=== PATIENT | female | born 1975 | race Caucasian/White ===

== ENCOUNTER 2023-10-09 15:02 | Emergency (ER) | payer OTHER, SELFPAY ==
[2023-10-09] MEDS ORDERED: Ondansetron ODT 4 MG TAB ONE (16:44)
[2023-10-09 17:01] LABS: #Basophils 0.03 10x3/uL (0.0-0.2); %Basophils 0.5 % (0.0-1.0); %Eosinophils 1.8 % (0.0-10.0); %Lymphocytes 21.3 % (21.0-51.0); %Neutrophils 69.1 % (42.0-75.0); Hematocrit 37.7 % (36.0-47.0); Hemoglobin 12.5 g/dL (12.0-16.0); Mean Corpuscular HGB CONC 33.2 g/dL (32.0-36.0); Mean Corpuscular Hemoglobin 29.5 pg (27.0-31.0); Mean Corpuscular Volume 88.9 fL (78.0-98.0); Mean Platelet Volume 9.2 fL (7.4-10.4); Platelet Count 427 10x3/uL (130-400); RBC Distribution Width 14.3 % (11.5-14.5); Red Blood Cell (RBC) Count 4.24 mill/uL (4.20-5.40)
[2023-10-09 17:02] LABS: BHCG - Serum Negative (NEGATIVE); Pregs Control Background? CLEAR/WHITE (CLR/WHITE); Pregs Control Bar Appear? YES (CONTROL BAR)
[2023-10-09 17:06] LABS: ALT (SGPT) 34 U/L (8-55); AST (SGOT) 30 U/L (5-34); Albumin 3.5 g/dL (3.5-5.0); Alkaline Phosphatase 117 U/L (40-110); Anion Gap 14 mmol/L (10-20); BUN (Urea Nitrogen) 13 mg/dL (7.0-18.7); Bilirubin, Total 0.3 mg/dL (0.2-1.2); Calc. Creatinine Clearance 0 mL/min (70-130); Calcium 9.4 mg/dL (7.8-10.44); Carbon Dioxide 26 mmol/L (22-29); Chloride 103 mmol/L (98-107); Estimated GFR 88; Globulin 4.3 g/dL (2.4-3.5); Glucose 114 mg/dL (70-105); Lipase 19 U/L (8-78); Potassium 3.7 mmol/L (3.5-5.1); Protein, Total 7.8 g/dL (6.0-8.3); Sodium 139 mmol/L (136-145)
[2023-10-09 17:11] LABS: Troponin I Less than 0.010 ng/mL (< 0.028)
[2023-10-09 17:30] LABS: Bacteria/HPF 2+ HPF (None Seen); Bilirubin Negative (Negative); Blood, Urine 3+ (Negative); CAUTI Indications for Culture Dysuria,urgency,freq; Glucose, Urine (Dipstick) Normal (Negative); Ketone, Urine Trace mg/dL (Negative); Leukocyte 500 Leu/uL (Negative); Nitrite 2+ (Negative); Protein, Urine (Dipstick) 50 mg/dL (Neg-Trace); Specific Gravity, Urine 1.028 (1.002-1.036); WBC/HPF Greater than 50 HPF (0-3)
[2023-10-09 17:48] LABS: Clarity Cloudy (Clear)
[2023-10-09 17:49] LABS: Urine Culture Reflex Yes Yes
== END 2023-10-09 17:30 | disposition home or self-care (01) ==
LOC: ERS 15:02
DX: K21.9 Gastro-esophageal reflux disease without esophagitis (principal); F17.210 Nicotine dependence, cigarettes, uncomplicated
CPT/HCPCS: 80053; 81001; 83690; 84484; 84703; 85025; 87077; 87086; 93005; Q0162

== ENCOUNTER 2023-11-12 23:25 | Inpatient (IN) | payer SELFPAY ==
[2023-11-13] MEDS ORDERED: Dicyclomine 20 MG/2 ML VIAL ONE (00:29)
[2023-11-13] MEDS ORDERED: Ondansetron PF 4 MG/2 ML Vial ONE ×2 (00:29→13:04)
[2023-11-13 00:52] LABS: #Basophils 0.03 10x3/uL (0.0-0.2); %Basophils 0.4 % (0.0-1.0); %Eosinophils 0.8 % (0.0-10.0); %Lymphocytes 18.9 % (21.0-51.0); %Monocytes 6.7 % (0.0-10.0); %Neutrophils 72.9 % (42.0-75.0); Hematocrit 30.2 % (36.0-47.0); Hemoglobin 9.6 g/dL (12.0-16.0); Mean Corpuscular HGB CONC 31.8 g/dL (32.0-36.0); Mean Platelet Volume 8.8 fL (7.4-10.4); Platelet Count 404 10x3/uL (130-400); RBC Distribution Width 15.2 % (11.5-14.5); Red Blood Cell (RBC) Count 3.43 mill/uL (4.20-5.40)
[2023-11-13 01:08] LABS: ALT (SGPT) 28 U/L (8-55); AST (SGOT) 20 U/L (5-34); Albumin 2.8 g/dL (3.5-5.0); Alkaline Phosphatase 94 U/L (40-110); Anion Gap 11 mmol/L (10-20); BUN (Urea Nitrogen) 16 mg/dL (7.0-18.7); Bilirubin, Total 0.3 mg/dL (0.2-1.2); Calc. Creatinine Clearance 0 mL/min (70-130); Calcium 8.8 mg/dL (7.8-10.44); Carbon Dioxide 23 mmol/L (22-29); Chloride 106 mmol/L (98-107); Estimated GFR 86; Globulin 3.5 g/dL (2.4-3.5); Glucose 100 mg/dL (70-105); Lipase 18 U/L (8-78); Potassium 3.3 mmol/L (3.5-5.1); Protein, Total 6.3 g/dL (6.0-8.3); Sodium 137 mmol/L (136-145)
[2023-11-13] MEDS ORDERED: Piperacillin/Tazobactam 3.375 GM VIAL ONE (03:48)
[2023-11-13] MEDS ORDERED: Morphine 4 MG/ML VIAL ONE (04:06)
[2023-11-13] MEDS ORDERED: Morphine 4 MG/ML VIAL SLOW IVP PRN (04:24)
[2023-11-13] MEDS ORDERED: Ondansetron PF 4 MG/2 ML Vial IVP PRN (04:24)
[2023-11-13] MEDS ORDERED: Promethazine HCl 25 MG/ML VIAL IM PRN ×2 (04:24→12:25)
[2023-11-13] MEDS ORDERED: Acetaminophen 325 MG TAB PO PRN (04:24)
[2023-11-13 04:51] VITALS: BMI 21.9
[2023-11-13] MEDS: Sodium Chloride 0.9% 1,000 ML IV SCH (05:47)
[2023-11-13] MEDS: TETANUS, DIPHTHERIA TOX,ADULT (TDVAX) 0.5 ML VIAL IM ONE (06:39)
[2023-11-13] MEDS: diphenhydrAMINE 50 MG/ML VIAL ONE (07:25)
[2023-11-13] MEDS: Famotidine/PF 20 mg/2ml Vial SLOW IVP SCH (08:21)
[2023-11-13] MEDS ORDERED: Dicyclomine 20 MG TAB PO PRN (08:48)
[2023-11-13] MEDS ORDERED: EPINEPHrine 1 MG/ML VIAL ONE ×2 (09:21→12:51)
[2023-11-13] MEDS ORDERED: Bupivacaine 0.25% HCL 30 ML VIAL ONE ×2 (09:21→12:52)
[2023-11-13] MEDS: Rosuvastatin 10 MG TAB PO SCH (12:23)
[2023-11-13] MEDS: Pantoprazole DR 40 MG TAB PO SCH (12:23)
[2023-11-13] MEDS: Losartan 25 MG TAB PO SCH (12:23)
[2023-11-13] MEDS ORDERED: Ondansetron HCl/PF 4 MG/2 ML Vial IVP PRN (12:25)
[2023-11-13] MEDS ORDERED: HYDROmorphone 2 MG/ML VIAL SLOW IVP PRN (12:25)
[2023-11-13] MEDS ORDERED: Midazolam HCl 2 mg/2 ml Vial ONE (13:03)
[2023-11-13] MEDS ORDERED: fentaNYL PF 100 MCG/2 ML SYRINGE ONE ×2 (13:03→14:38)
[2023-11-13] MEDS ORDERED: PROPOFOL 20 ML ONE (13:03)
[2023-11-13] MEDS ORDERED: Lidocaine 1% PF 5 ML VIAL ONE (13:04)
[2023-11-13] MEDS ORDERED: Dexamethasone 20 MG/5 ML VIAL ONE (13:04)
[2023-11-13] MEDS ORDERED: Rocuronium Bromide 10 MG/ML (10ML VIAL) ONE (13:04)
[2023-11-13] MEDS ORDERED: LevoFLOXacin D5W 500 mg (100 mL) BAG ONE (13:25)
[2023-11-13] MEDS ORDERED: diphenhydrAMINE 50 MG/ML VIAL ONE (13:36)
[2023-11-13] MEDS ORDERED: SUGAMMADEX SODIUM 200 MG/2 ML VIAL ONE (13:57)
[2023-11-13] MEDS ORDERED: Promethazine HCl 25 MG/ML VIAL ONE (14:39)
[2023-11-13] MEDS: hydrALAZINE 20 MG/ML VIAL SLOW IVP PRN (20:53)
[2023-11-14 06:54] LABS: #Basophils Less than 0.03 10x3/uL (0.0-0.2); #Eosinphils Less than 0.03 10x3/uL (0.0-0.7); %Basophils 0.1 % (0.0-1.0); %Lymphocytes 15.8 % (21.0-51.0); %Monocytes 5.2 % (0.0-10.0); %Neutrophils 78.5 % (42.0-75.0); Hemoglobin 10.8 g/dL (12.0-16.0); Mean Corpuscular HGB CONC 31.8 g/dL (32.0-36.0); Mean Corpuscular Hemoglobin 27.3 pg (27.0-31.0); Mean Corpuscular Volume 85.9 fL (78.0-98.0); Mean Platelet Volume 8.9 fL (7.4-10.4); Platelet Count 451 10x3/uL (130-400); RBC Distribution Width 15.3 % (11.5-14.5); Red Blood Cell (RBC) Count 3.96 mill/uL (4.20-5.40)
[2023-11-14 07:27] LABS: ALT (SGPT) 54 U/L (8-55); AST (SGOT) 45 U/L (5-34); Albumin 2.7 g/dL (3.5-5.0); Alkaline Phosphatase 100 U/L (40-110); Anion Gap 11 mmol/L (10-20); BUN (Urea Nitrogen) 8 mg/dL (7.0-18.7); Bilirubin, Total 0.3 mg/dL (0.2-1.2); Calc. Creatinine Clearance 83 mL/min (70-130); Calcium 8.8 mg/dL (7.8-10.44); Carbon Dioxide 23 mmol/L (22-29); Chloride 108 mmol/L (98-107); Estimated GFR 96; Globulin 3.9 g/dL (2.4-3.5); Glucose 140 mg/dL (70-105); Protein, Total 6.6 g/dL (6.0-8.3); Sodium 138 mmol/L (136-145)
[2023-11-14] MEDS: traMADol HCl 50 MG TAB PO PRN (10:41)
[2023-11-14 11:50] VITALS: BP 161/84; TEMP 97.8
== END 2023-11-14 13:07 | disposition home or self-care (01) | DRG 419 ==
LOC: ERS 23:25 → T4-B 11-13 04:37 → OBSVTOIN 11-13 04:37
PROVIDERS: ADMIT Surgery; ATTEND Surgery
PROC: 0FT44ZZ Resection of Gallbladder, Percutaneous Endoscopic Approach (ICD-10-PCS; principal; 2023-11-13)
DX: K80.00 Calculus of gallbladder with acute cholecystitis without obstruction (principal); Z98.890 Other specified postprocedural states; Z79.899 Other long term (current) drug therapy
CPT/HCPCS: 36415; 76705; 80053; 83690; 85025; 88304; 90714; 96372; 96374; 96375; C1713; G0378; J0171; J0360; J0665; J1100; J1200; J1956; J2250; J2270; J2405; J2543; J2550; J2704; J7050; S0028

== ENCOUNTER 2023-11-21 10:37 | Emergency (ER) | payer OTHER, SELFPAY ==
[2023-11-21] MEDS ORDERED: Iopamidol 370 76% 100 ML VIAL ONE (10:44)
[2023-11-21 11:12] LABS: #Basophils 0.03 10x3/uL (0.0-0.2); %Basophils 0.4 % (0.0-1.0); %Eosinophils 3.7 % (0.0-10.0); %Neutrophils 67.7 % (42.0-75.0); Hematocrit 33.7 % (36.0-47.0); Hemoglobin 10.7 g/dL (12.0-16.0); Mean Corpuscular HGB CONC 31.8 g/dL (32.0-36.0); Mean Corpuscular Hemoglobin 27.2 pg (27.0-31.0); Mean Corpuscular Volume 85.5 fL (78.0-98.0); Mean Platelet Volume 9.1 fL (7.4-10.4); Platelet Count 503 10x3/uL (130-400); RBC Distribution Width 14.8 % (11.5-14.5); Red Blood Cell (RBC) Count 3.94 mill/uL (4.20-5.40)
[2023-11-21 11:39] LABS: Pregnancy Test - Urine (BHCG) Negative (Negative); Pregu Control Background? CLEAR/WHITE (CLR/WHITE); Pregu Control Bar Appear? YES (CONTROL BAR)
[2023-11-21 11:41] LABS: Bilirubin Negative (Negative); Blood, Urine Negative (Negative); CAUTI Indications for Culture Dysuria,urgency,freq; Clarity Clear (Clear); Glucose, Urine (Dipstick) Normal (Negative); Ketone, Urine Negative (Negative); Leukocyte Negative Leu/uL (Negative); Nitrite Negative (Negative); Protein, Urine (Dipstick) Negative (Neg-Trace); RBC/HPF 0-3 HPF (0-3); Squamous Epithelial 0-3 HPF (0-3); Urobilinogen Normal mg/dL (Less than 2)
[2023-11-21 11:46] LABS: ALT (SGPT) 17 U/L (8-55); AST (SGOT) 16 U/L (5-34); Albumin 2.9 g/dL (3.5-5.0); Alkaline Phosphatase 76 U/L (40-110); Anion Gap 11 mmol/L (10-20); BUN (Urea Nitrogen) 10 mg/dL (7.0-18.7); Bilirubin, Total 0.5 mg/dL (0.2-1.2); Calc. Creatinine Clearance 0 mL/min (70-130); Calcium 8.6 mg/dL (7.8-10.44); Carbon Dioxide 22 mmol/L (22-29); Chloride 108 mmol/L (98-107); Estimated GFR 101; Globulin 3.7 g/dL (2.4-3.5); Glucose 105 mg/dL (70-105); Lipase 19 U/L (8-78); Magnesium 1.9 mg/dL (1.6-2.6); Protein, Total 6.6 g/dL (6.0-8.3); Sodium 137 mmol/L (136-145)
[2023-11-21 11:50] LABS: Bacteria/HPF Rare-Few HPF (None Seen)
[2023-11-21] MEDS ORDERED: Ondansetron PF 4 MG/2 ML Vial ONE (11:50)
[2023-11-21 11:51] LABS: Urine Culture Reflex No No
[2023-11-21] MEDS ORDERED: Prochlorperazine 10 MG/2 ML VIAL ONE (12:16)
== END 2023-11-21 14:28 | disposition home or self-care (01) ==
LOC: ERS 10:37
DX: R10.9 Unspecified abdominal pain (principal); R10.817 Generalized abdominal tenderness; I10 Essential (primary) hypertension; E11.9 Type 2 diabetes mellitus without complications; E78.00 Pure hypercholesterolemia, unspecified; F17.210 Nicotine dependence, cigarettes, uncomplicated; Z79.899 Other long term (current) drug therapy
CPT/HCPCS: 36415; 74177; 80053; 81001; 81025; 83690; 83735; 85025; 96374; 96375; J0780; J2405; Q9967